=== PATIENT | female | born 1960 | race Caucasian/White ===

== ENCOUNTER 2021-09-11 22:15 | Emergency (ER) | payer OTHER, BC ==
[2021-09-11] MEDS ORDERED: Lidocaine 1% PF 5 ML VIAL ONE ×2 (22:32→22:37)
[2021-09-11] MEDS ORDERED: Boostrix 0.5 ML (Tdap) VIAL ONE (22:33)
[2021-09-11] MEDS ORDERED: Bacitracin 1 PK ONE (22:55)
== END 2021-09-11 23:03 | disposition home or self-care (01) ==
LOC: BURERS 22:15
DX: S51.011A Laceration without foreign body of right elbow, initial encounter (principal); S50.11XA Contusion of right forearm, initial encounter; Z23 Encounter for immunization; W01.0XXA Fall on same level from slipping, tripping and stumbling without subsequent striking against object, initial encounter; Y92.091 Bathroom in other non-institutional residence as the place of occurrence of the external cause
CPT/HCPCS: 12002; 90471; 90715